=== PATIENT | female | born 1985 | race African-American/Black ===

== ENCOUNTER 2017-05-08 10:33 | Emergency (ER) | payer MEDICARE, OTHER ==
[~2017-05-08] VITALS: Ht 160 cm; Wt 109.9 kg
[~2017-05-08 10:33] MED LIST: HYDR-971 PO; MUPI22OI2 TP; SULF1TAB24 PO
[2017-05-08 10:45] VITALS: BP 140/72
--- NOTE | 2017-05-08 11:11 | PHYS DOC ---
Past Medical History Past Medical History: Other Additional Past Medical Histor: perihpeal edema Past Surgical History: No Surgical History Alcohol Use: Occasionally Drug Use: Marijuana Adult General Chief Complaint Chief Complaint: LOWER EXTREMITY EDEMA HPI HPI Patient is a 31 year old female who presents with complaint of lower extremity swelling. Patient states that she has history of peripheral edema at baseline. Patient states that over the past week she has had worsening edema. Patient states that she is currently on HCTZ therapy for her edema. Patient notes that she has been on her feet quite a bit over the past 2 weeks and has been out in the heat which she thinks may be contributing to her symptoms. The patient states that she was told by a friend that she had worsening edema and they made her concerned that she might have another problem. The patient states that she has been walking normal distances without any associated chest pain or dyspnea. Patient denies any history of cardiac disease. Patient denies orthopnea. Patient denies any pain in her lower extremities and denies any numbness in her feet associated with her edema. Patient has been able to ambulate without difficulty. Review of Systems Review of Systems Constitutional: Denies fever or chills [] Eyes: Denies change in visual acuity, redness, or eye pain [] HENT: Denies nasal congestion or sore throat [] Respiratory: Denies cough or shortness of breath [] Cardiovascular: Lower extremity edema, denies chest pain [] GI: Denies abdominal pain, nausea, vomiting, bloody stools or diarrhea [] : Denies dysuria or hematuria [] Musculoskeletal: Denies back pain or joint pain [] Integument: Denies rash or skin lesions [] Neurologic: Denies headache, focal weakness or sensory changes [] Allergies Allergies Allergies Coded Allergies Type Severity Reaction Last Updated Verified No Known Drug Allergies 10/15/13 No Physical Exam Physical Exam Constitutional: Alert, afebrile, no acute distress. [] HENT: Normocephalic, atraumatic, bilateral external ears normal, oropharynx moist, no oral exudates, nose normal. [] Eyes: PERRLA, EOMI, conjunctiva normal, no discharge. [] Neck: Normal range of motion, no tenderness, supple, no stridor. [] Cardiovascular:Heart rate regular rhythm, no murmur [] Lungs & Thorax: Bilateral breath sounds clear to auscultation [] Abdomen: Bowel sounds normal, soft, no tenderness, no masses, no pulsatile masses. [] Skin: Warm, dry, no erythema, no rash. [] Back: No tenderness, no CVA tenderness. [] Extremities: No tenderness, no cyanosis, no clubbing, ROM intact, negative Homans sign, 1+ pitting edema in the bilateral feet and ankles, distal pulses 2 + in bilateral lower extremities. [] Neurologic: Alert and oriented X 3, normal motor function, normal sensory function, no focal deficits noted. [] Current Patient Data Vital Signs Vital Signs Date Time Temp Pulse Resp B/P (MAP) Pulse Ox O2 Delivery O2 Flow Rate FiO2 05/08/17 10:45 98.0 74 16 140/72 (94) 100 Room Air 98.0 Lab Values Laboratory Tests Test 05/08/17 11:12 POC Hemoglobin 12.2 g/dL (12-15) POC Hematocrit 36 % (36-40) POC Sodium 140 mmol/L (135-145) POC Potassium 3.9 mmol/L (3.5-5.0) POC Chloride 101 mmol/L (98-110) POC Total CO2 26 mmol/L (23-32) Anion Gap 18 mmol/L (6-14) H POC Blood Urea Nitrogen 7 mg/dL (8-26) L POC Creatinine 0.9 mg/dL (0.5-1.4) Glucose Level 83 mg/dL (70-99) POC Ionized Calcium (Min) 1.16 mmol/L (1.13-1.32) Laboratory Tests 05/08/17 11:12 EKG EKG Rhythm strip interpretation by me: Heart rate 74, sinus rhythm, no ectopy Radiology/Procedures Radiology/Procedures Not performed [] Course & Med Decision Making Course & Med Decision Making Pertinent Labs and Imaging studies reviewed. (See chart for details) The patient's symptoms and physical exam findings are consistent with peripheral edema. I have low suspicion that the patient has worsening edema due to a cardiac cause. Patient's metabolic panel shows normal kidney function and normal potassium levels. Advised patient to continue on her HCTZ at twice regular dose for the next 2 days and then to return to her normal dosing thereafter. Advised patient to limit activity outside and to limit excessive standing as this can also worsen her symptoms. Recommended elevation of the lower extremities to help reduce swelling. Advise follow-up in 3-5 days with patient's primary doctor for reevaluation and return to emergency department for any worsening symptoms. Patient voiced understanding and in agreement with treatment plan. Dragon Disclaimer Dragon Disclaimer This electronic medical record was generated, in whole or in part, using a voice recognition dictation system. Departure Departure Impression: Primary Impression: Peripheral edema Disposition: HOME, SELF-CARE Condition: GOOD Referrals: NO PCP (PCP) Patient Instructions: Peripheral Edema Additional Instructions: You may continue on twice your normal daily dose of HCTZ for the next 2 days. Please return to your normal dosing after 2 days. Limit excessive standing and do not remain outside in hot weather as this can worsen your peripheral edema. Follow-up with primary doctor in 3-5 days for reevaluation and return to emergency department for any worsening symptoms. JAVY GANN MD May 08, 2017 11:11
[2017-05-08 11:21] LABS: POTASSIUM ISTAT 3.9 mmol/L (3.5-5.0)
== END 2017-05-08 11:28 | disposition home or self-care (01) ==
LOC: ER 10:33
DX: R60.0 Localized edema (principal); F12.10 Cannabis abuse, uncomplicated; Z79.899 Other long term (current) drug therapy
CPT/HCPCS: 36415; 80047; 99282

== ENCOUNTER 2017-06-27 08:33 | Emergency (ER) | payer MEDICARE, OTHER ==
[~2017-06-27] VITALS: Ht 160 cm; Wt 90.7 kg
--- NOTE | 2017-06-27 09:32 | PHYS DOC ---
Past Medical History Past Medical History: Other Additional Past Medical Histor: perihpeal edema Past Surgical History: No Surgical History Alcohol Use: Occasionally Drug Use: Marijuana Adult General Chief Complaint Chief Complaint: BACK PAIN OR INJURY HPI HPI Patient is a 32 year old female who presents with pain to her neck, shoulders and a headache that has been off and on for the past 4 days. She states that she was moving boxes and thinks that she pulled a muscle. She denies fever, congestion or illness. She states that Tylenol has not helped relieve her symptoms. Review of Systems Review of Systems Constitutional: Denies fever or chills [] Eyes: Denies change in visual acuity, redness, or eye pain [] HENT: Denies nasal congestion or sore throat [] Respiratory: Denies cough or shortness of breath [] Cardiovascular: No additional information not addressed in HPI [] Musculoskeletal: See history of present illness Integument: Denies rash or skin lesions [] Neurologic: See history of present illness Endocrine: Denies polyuria or polydipsia [] Current Medications Current Medications Current Medications Medications (Trade) Dose Ordered Sig/Theodore Start Time Stop Time Status Last Admin Dose Admin Ketorolac Tromethamine (Toradol Im) 60 mg 1X ONCE 06/27/17 10:45 06/27/17 10:47 DC 06/27/17 10:52 60 MG Allergies Allergies Allergies Coded Allergies Type Severity Reaction Last Updated Verified No Known Drug Allergies 10/15/13 No Physical Exam Physical Exam Constitutional: Well developed, well nourished, no acute distress, non-toxic appearance. [] HENT: Normocephalic, atraumatic, bilateral external ears normal, oropharynx moist, no oral exudates, nose normal. [] Eyes: PERRLA, EOMI, conjunctiva normal, no discharge. [] Neck: Normal range of motion, tenderness to trapezius bilaterally with palpation , supple, no stridor. [] Cardiovascular:Heart rate regular rhythm, no murmur [] Lungs & Thorax: Bilateral breath sounds clear to auscultation [] Skin: Warm, dry, no erythema, no rash. [] Back: tenderness over her scapula bilaterally, no CVA tenderness. [] Extremities: No tenderness, no cyanosis, no clubbing, ROM intact, no edema. [] Neurologic: Alert and oriented X 3, normal motor function, normal sensory function, no focal deficits noted. [] Psychologic: Affect normal, judgement normal, mood normal. [] Current Patient Data Vital Signs Vital Signs Date Time Temp Pulse Resp B/P (MAP) Pulse Ox O2 Delivery O2 Flow Rate FiO2 06/27/17 09:38 98.2 72 18 100 Room Air 98.2 Lab Values Laboratory Tests Test 06/27/17 10:17 POC Urine HCG, Qualitative Hcg negative (Negative) EKG EKG [] Radiology/Procedures Radiology/Procedures [] Course & Med Decision Making Course & Med Decision Making Pertinent Labs and Imaging studies reviewed. (See chart for details) []1. Tension headache 2. Muscle strain The patient was given Toradol in the emergency department following a negative test. Upon recheck she states that it has helped her pain. She was sent home with a muscle relaxant and a small amount of pain medication. She is to return to the ED if worsening or follow-up with her primary care for further evaluation Dragon Disclaimer Dragon Disclaimer This electronic medical record was generated, in whole or in part, using a voice recognition dictation system. Departure Departure Referrals: UNKNOWN PCP NAME (PCP) Scripts Cyclobenzaprine Hcl (CYCLOBENZAPRINE HCL) 5 Mg Tablet 1 TAB PO QHS, #10 TAB Prov: VIRGEN LAGUNAS APRN 06/27/17 Hydrocodone/Apap 5-325 (NORCO 5-325 TABLET) 1 Each Tablet 1 TAB PO PRN Q6HRS Y for PAIN, #10 TAB 0 Refills Prov: VIRGEN LAGUNAS APRN 06/27/17 VIRGEN LAGUNAS APRN Jun 27, 2017 09:32
[2017-06-27 09:38] VITALS: BP 121/68
[2017-06-27] MEDS ORDERED: KETOROLAC 60 MG/2 ML INJ. IM ONE (10:45)
[2017-06-27] MEDS ORDERED: CYCL5TAB PO (11:44)
[2017-06-27] MEDS ORDERED: HYDR-971 PO (11:44)
== END 2017-06-27 11:58 | disposition home or self-care (01) ==
LOC: ER 08:33
DX: S16.1XXA Strain of muscle, fascia and tendon at neck level, initial encounter (principal); R51 Headache; M25.519 Pain in unspecified shoulder; X50.9XXA Other and unspecified overexertion or strenuous movements or postures, initial encounter; Y93.89 Activity, other specified; Y99.8 Other external cause status; Y92.89 Other specified places as the place of occurrence of the external cause
CPT/HCPCS: 81025; 96372; 99283; J1885

== ENCOUNTER 2018-10-26 10:10 | Emergency (ER) | payer MEDICARE, OTHER ==
[~2018-10-26] VITALS: Ht 157.5 cm; Wt 102.1 kg
[~2018-10-26 10:10] MED LIST changes: +CYCL5TAB PO; +HYDR-3164 PO; -HYDR-971 PO
[2018-10-26 10:18] VITALS: BP 142/84
[2018-10-26] MEDS ORDERED: IBUPROFEN 600 MG TABLET. PO ONE (10:30)
[2018-10-26] MEDS ORDERED: METHOCARBAMOL 500 MG TABLET PO ONE (10:30)
--- NOTE | 2018-10-26 10:31 | PHYS DOC ---
Past Medical History Past Medical History: Other Additional Past Medical Histor: peripheral edema Past Surgical History: Other Additional Past Surgical Histo: dilation and curratage Alcohol Use: None Drug Use: Marijuana Adult General Chief Complaint Chief Complaint: BACK PAIN OR INJURY HPI HPI 33 y/o female presents to ER via POV for c/o 2 day hx of lt lower back pain radiating into lt lower extremity. She reports she bent over a couple of days ago and had back pain following that- she denies incontinence of bowel/bladder or saddle anesthesia. She denies numbness/tingling, swelling, or inability to walk. LMP was 10/20/18 denying any vaginal sxs. She reports she has had some difficulty with starting urination but is uncertain if r/t pain with sitting down. She denies hematuria/dysuria. She reports she took some Ibuprofen/tylenol yest. denies any OTC today. Review of Systems Review of Systems Constitutional: Denies fever or chills [] Eyes: Denies change in visual acuity, redness, or eye pain [] HENT: Denies nasal congestion or sore throat [] Respiratory: Denies cough or shortness of breath [] Cardiovascular: No additional information not addressed in HPI [] GI: Denies abdominal pain, nausea, vomiting, bloody stools or diarrhea [] : Denies dysuria or hematuria. Denies incontinence of bowel/bladder or saddle anesth. Musculoskeletal: Reports lt lower back pain radiating down back of lt buttock/ leg Integument: Denies rash, swelling or skin lesions [] Neurologic: Denies headache, focal weakness or sensory changes [] All other systems were reviewed and found to be within normal limits, except as documented in this note. Current Medications Current Medications Current Medications Medications (Trade) Dose Ordered Sig/Theodore Start Time Stop Time Status Last Admin Dose Admin Ibuprofen (Motrin) 600 mg 1X ONCE 10/26/18 10:30 10/26/18 10:31 DC 10/26/18 10:38 600 MG Methocarbamol (Robaxin) 500 mg 1X ONCE 10/26/18 10:30 10/26/18 10:31 DC 10/26/18 10:38 500 MG Allergies Allergies Allergies Coded Allergies Type Severity Reaction Last Updated Verified No Known Drug Allergies 10/15/13 No Physical Exam Physical Exam Constitutional: Well developed, well nourished, mild distress, non-toxic appearance. Steady unassisted gait HENT: Normocephalic, atraumatic, oropharynx moist, nose normal. [] Eyes: Pupils equal, conjunctiva normal, no discharge. [] Neck: Normal range of motion, supple Cardiovascular:Heart rate regular Lungs & Thorax: Resp equal/nonlabored Abdomen: Bowel sounds normal, soft, no tenderness/distention Skin: Warm, dry, no erythema, no rash. [] Back: Tender on palp. in lt lower back- no swelling or skin discoloration- lt side CVA tenderness. Rt side exam NL- no tenderness. No midline spinal tenderness or palp. deformity Extremities: Rt LE exam NL with no tenderness, tenderness on palp. of lt mid buttock/lt posterior upper leg, no cyanosis, no clubbing, ROM intact, no edema.2 + bilat. posterior tibial/dorsalis pedis- calf size symmetric with no tenderness Neurologic: Alert and oriented X 3, normal motor function, normal sensory function, no focal deficits noted. [] Psychologic: Affect normal, judgement normal, mood normal. [] Current Patient Data Vital Signs Lab Values Laboratory Tests Test 10/26/18 10:30 10/26/18 10:37 Urine Collection Type Unknown Urine Color Yellow Urine Clarity Clear Urine pH 6.0 Urine Specific [place] 1.020 Urine Protein Negative mg/dL (NEG-TRACE) Urine Glucose (UA) Negative mg/dL (NEG) Urine Ketones (Stick) Negative mg/dL (NEG) Urine Blood Negative (NEG) Urine Nitrite Negative (NEG) Urine Bilirubin Negative (NEG) Urine Urobilinogen Dipstick 0.2 mg/dL (0.2 mg/dL) Urine Leukocyte Esterase Negative (NEG) Urine RBC Occ /HPF (0-2) Urine WBC Occ /HPF (0-4) Urine Squamous Epithelial Cells Mod /LPF Urine Bacteria Few /HPF (0-FEW) Urine Mucus Mod /LPF POC Urine HCG, Qualitative Hcg negative (Negative) EKG EKG [] Radiology/Procedures Radiology/Procedures [] Course & Med Decision Making Course & Med Decision Making Pertinent Labs reviewed. (See chart for details) Pt was evaluated in the ER for c/o 2 day hx of lt lower back pain radiating into lt lower leg. Pt was given dose of Ibuprofen and Robaxin with reports of improved pain by pt. She remains PMS intact in bilat. extremities and on re- eval. is in no distress with steady unassisted gait in room. UA was obtained which was neg. for infection. UCG neg. Discussed probable sciatica and OTC options for pain management tylenol/ibuprofen, sports cream, and ice/heat compress PRN. Education provided on s&s to return to ER for d/c instructions were discussed. Will provide Rx for Robaxin with d/c paperwork- pt had been given dose while in the ER as she reported her friend was driving her home. Pt to f/u with her PCP if sxs persist for further eval. and care. Staff Physician Addendum: I was working in the ER during the course of this patient's visit. I was available for consultation as needed, but I was not directly involved in the care of this patient. Dragon Disclaimer Dragon Disclaimer This electronic medical record was generated, in whole or in part, using a voice recognition dictation system. Departure Departure Impression: Primary Impression: Back pain Additional Impression: Sciatica Disposition: 01 HOME, SELF-CARE Condition: STABLE Referrals: UNKNOWN PCP NAME (PCP) Patient Instructions: Back Pain, Adult, Sciatica Additional Instructions: Apply ice and heat compress to affected area every 3-4 hours for 20-30 minutes at a time avoiding direct contact of ice to skin. Tylenol and/or ibuprofen as directed on container as needed for pain. If symptoms persist follow-up with primary care physician for reevaluation and further care. Scripts Methocarbamol (ROBAXIN) 500 Mg Tablet 1 TAB PO BID PRN for PAIN, #10 TAB 0 Refills No driving or drinking alcohol while taking this medication Prov: STEWART LUX APRN 10/26/18 Problem Qualifiers STEWART LUX APRN Oct 26, 2018 10:31 BEREKET BARRETO MD Jan 30, 2019 20:17
[2018-10-26 10:54] LABS: BILIRUBIN,URINE NEGATIVE (NEG); CLARITY,URINE CLEAR; COLOR,URINE YELLOW; NITRITE,URINE NEGATIVE (NEG); PROTEIN,URINE NEGATIVE (NEG-TRACE); UROBILINOGEN,URINE 0.2 mg/dL (0.2 mg/dL)
[2018-10-26 10:58] LABS: SQUAMOUS EPITHELIAL CELL,UR MOD /LPF
[2018-10-26 10:59] LABS: BACTERIA,URINE FEW /HPF (0-FEW); RBC,URINE OCC /HPF (0-2); WBC,URINE OCC /HPF (0-4)
[2018-10-26] MEDS ORDERED: METH-37 PO (11:03)
== END 2018-10-26 11:05 | disposition home or self-care (01) ==
LOC: ER 10:10
DX: M54.42 Lumbago with sciatica, left side (principal)
CPT/HCPCS: 81001; 81025; 99283

== ENCOUNTER 2020-11-05 12:29 | Emergency (ER) | payer MEDICARE, OTHER ==
[~2020-11-05] VITALS: Ht 160 cm; Wt 115.0 kg
[~2020-11-05 12:29] MED LIST changes: +METH-37 PO
[2020-11-05 12:48] VITALS: BP 167/100
[2020-11-05] MEDS ORDERED: KETOROLAC 60 MG/2 ML VIAL. IM ONE (13:00)
[2020-11-05] MEDS ORDERED: IBUP-1007 PO ×2 (13:02→13:06)
[2020-11-05] MEDS ORDERED: AMOX1TAB61 PO ×2 (13:02→13:06)
--- NOTE | 2020-11-05 13:02 | PHYS DOC ---
Past Medical History Past Medical History: Hypertension, Other Additional Past Medical Histor: peripheral edema; back pain Past Surgical History: Other Additional Past Surgical Histo: dilation and curratage Smoking Status: Light Tobacco Smoker Alcohol Use: None Drug Use: Marijuana General Adult EDM: Chief Complaint: DENTAL PROBLEM HPI: HPI: Patient is a 35 year old female presents emergency department complaining of lower gum states her pain started this morning when she woke up. Patient states she has a long history of dental problems and has a hard time getting in to see dentist because of the coronavirus. Patient states that because of the coronavirus that dental facilities refused to see her. States she has been trying for months to get in to see a dentist. Patient denies any fever or chills, denies any throat pain or throat swelling, denies cough, denies shortness of breath or chest pain. Patient denies any other complaints or physical illnesses. Review of Systems: Review of Systems: 14 body systems of review of systems have been reviewed. See HPI for pertinent positives and negative responses, otherwise all other systems are negative, nonpertinent or noncontributory. Heart Score: Risk Factors: Risk Factors: DM, Current or recent (<one month) smoker, HTN, HLP, family history of CAD, obesity. Risk Scores: Score 0 - 3: 2.5% MACE over next 6 weeks - Discharge Home Score 4 - 6: 20.3% MACE over next 6 weeks - Admit for Clinical Observation Score 7 - 10: 72.7% MACE over next 6 weeks - Early Invasive Strategies Current Medications: Current Medications Medications (Trade) Dose Ordered Sig/Theodore Start Time Stop Time Status Last Admin Dose Admin Ketorolac Tromethamine (Toradol Im) 60 mg 1X ONCE 11/05/20 13:00 11/05/20 13:01 Allergies: Allergies: Allergies Coded Allergies Type Severity Reaction Last Updated Verified No Known Drug Allergies 10/15/13 No Physical Exam: PE: Constitutional: Well developed, well nourished, no acute distress, non-toxic appearance. HENT: Normocephalic, atraumatic, bilateral external ears normal, oropharynx moist, no oral exudates, nose normal. Marked dental caries, many decayed and broken teeth. Lower gumline reddened without exudative drainage. No deep tissue swelling appreciated. Eyes: PERRLA, EOMI, conjunctiva normal, no discharge. Neck: Normal range of motion, no tenderness, supple, no stridor. Cardiovascular:Heart rate regular rhythm, no murmur Lungs & Thorax: Bilateral breath sounds clear to auscultation Abdomen: Bowel sounds normal, soft, no tenderness, no masses, no pulsatile masses. Skin: Warm, dry, no erythema, no rash. Back: No tenderness, no CVA tenderness. Extremities: No tenderness, no cyanosis, no clubbing, ROM intact, no edema. Neurologic: Alert and oriented X 3, normal motor function, normal sensory function, no focal deficits noted. Psychologic: Affect normal, judgement normal, mood normal. Current Patient Data: Vital Signs: Vital Signs Date Time Temp Pulse Resp B/P (MAP) Pulse Ox O2 Delivery O2 Flow Rate FiO2 11/05/20 12:48 98.8 71 16 167/100 (122) 98 98.8 EKG: EKG: [] Radiology/Procedures: Radiology/Procedures: [] Course & Med Decision Making: Course & Med Decision Making Pertinent Labs and Imaging studies reviewed. (See chart for details) 35-year-old female, vital signs reviewed, presents emergency department with dental pain. Physical exam showed marked dental caries, gingivitis, lower gum swelling without exudative drainage. Will treat in the ER with 60 mg IM Toradol, will give prescription for Augmentin 875 mg twice daily x10 days, will give prescription for ibuprofen, will give dental referral list. Patient gave verbal understanding of discharge home instructions, follow-up with dentist, antibiotic prescriptions, ibuprofen prescriptions, return to ER precautions and concerns, discharged home. Cody Disclaimer: Cody Disclaimer: This electronic medical record was generated, in whole or in part, using a voice recognition dictation system. Departure Departure Impression: Primary Impression: Chronic dental pain Additional Impressions: Gingivitis Gingival swelling Disposition: 01 DC HOME SELF CARE/HOMELESS Condition: GOOD Referrals: UNKNOWN PCP NAME (PCP) Patient Instructions: Dental Caries Additional Instructions: Please follow-up with a dentist soon, take antibiotics as prescribed, take ibup rofen as prescribed, return to the emergency department for worsening symptoms or other concerns. EMERGENCY DEPARTMENT GENERAL DISCHARGE INSTRUCTIONS Thank you for coming to [facility] Emergency Department (ED) today and trusting us with you care. We trust that you had a positive experience in our Emergency Department. If you wish to speak to the department management, you may call the Director at [phone]. YOUR FOLLOW UP INSTRUCTIONS ARE FOLLOWS: 1. Do you have a private Doctor? If you do not have a private doctor, please ask for a resource list of physicians or clinics that may be able to assist you with follow up care. 2. The Emergency Physicain has interpreted your x-rays. The X-Ray specialist will also review them. If there is a change in the findings, you will be notified in 48 hours when at all possible. 3. A lab test or culture has been done, your results will be reviewed and you will be notified if you need a change in treatment. ADDITIONAL INSTRUCTIONS AND INFORMATION: 1. Your care today has been supervised by a physician who is specially trained in emergency care. Many problems require more than one evaluation for a complete diagnosis and treatment. We recommend that you schedule your follow up appointment as recommended to ensure complete treatment of you illness or injury. If you are unable to obtain follow up care and continue to have a problem, or if your condition worsens, we recommend that you return to the ED. 2. We are not able to safely determine your condition over the phone nor are we able to give sound medical advice over the phone. For these safety reasons, if you call for medical advice we will ask you to come to the ED for further evaluation. 3. If you have any questions regarding these discharge instructions please call the ED at [phone]. SAFETY INFORMATION: In the interest of safety, wellness, and injury prevention; we encourage you to wear your sealbelt, if you smoke; quite smoking, and we encourage family to use a protective helmet for bicycling and other sporting events that present an increased risk for head injury. IF YOUR SYMPTOMS WORSEN OR NEW SYMPTOMS DEVELOP, OR YOU HAVE CONCERNS ABOUT YOUR CONDITION; OR IF YOUR CONDITION WORSENS WHILE YOU ARE WAITING FOR YOUR FOLLOW UP APPOINTMENT; EITHER CONTACT YOUR PRIMARY CARE DOCTOR, THE PHYSICIAN WHOSE NAME AND NUMBER YOU WERE GIVEN, OR RETURN TO THE ED IMMEDIATELY. Scripts Amoxicillin/Potassium Clav (AUGMENTIN 875-125 TABLET) 1 Each Tablet 1 TAB PO BID for DENTAL INFECTION for 10 Days, #20 TAB 0 Refills Prov: MAYI BARRON CONSUMER INSIGHT ANALYST 11/05/20 Ibuprofen (IBUPROFEN) 600 Mg Tablet 600 MG PO PRN Q6HRS PRN for INFLAMMATION, #20 TAB 0 Refills Prov: MAYI BARRON APRN 11/05/20 MAYI BARRON APRN Nov 05, 2020 13:02
== END 2020-11-05 13:11 | disposition home or self-care (01) ==
LOC: ER 12:29
DX: K05.10 Chronic gingivitis, plaque induced (principal); K08.89 Other specified disorders of teeth and supporting structures; I10 Essential (primary) hypertension; F12.90 Cannabis use, unspecified, uncomplicated; Z98.890 Other specified postprocedural states
CPT/HCPCS: 96372; 99283; J1885